=== PATIENT | female | born 1955 | race African-American/Black ===

== ENCOUNTER 2018-06-10 07:46 | Emergency (ER) | payer OTHER, BC ==
[2018-06-10] MEDS ORDERED: FLEXERIL PO ONE (08:04)
[2018-06-10] MEDS ORDERED: IBUPROFEN PO ONE (08:04)
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
--- NOTE | 2018-06-10 08:38 | XRay Report ---
LUMBOSACRAL SPINE, 3 VIEWS: History: Back pain Findings: No comparison. There is borderline bone mineralization. Mild degenerative disc disease and facet arthropathy are identified at all levels. No evidence for compression deformity, subluxation or bone lesion. Mild symmetric degenerative changes at the SI joints. Impression: Borderline osteopenia. Mild multilevel lumbar spondylosis. No acute process identified.
== END 2018-06-10 09:28 | disposition home or self-care (01) ==
LOC: ED 07:46
DX: S39.012A Strain of muscle, fascia and tendon of lower back, initial encounter (principal); S46.919A Strain of unspecified muscle, fascia and tendon at shoulder and upper arm level, unspecified arm, initial encounter; R03.0 Elevated blood-pressure reading, without diagnosis of hypertension; V89.2XXA Person injured in unspecified motor-vehicle accident, traffic, initial encounter; Y93.89 Activity, other specified; Y99.8 Other external cause status; Y92.410 Unspecified street and highway as the place of occurrence of the external cause
CPT/HCPCS: 72100; 99283